=== PATIENT | female | born 1940 | race Asian ===

== ENCOUNTER 2020-03-09 07:05 | Day surgery (SDC) | payer OTHER, SELFPAY ==
[~2020-03-09] VITALS: Ht 157.5 cm; Wt 66.2 kg
[2020-03-09] MEDS ORDERED: fentaNYL citrate 0.05 MG/ML VIAL ONE (09:11)
[2020-03-09] MEDS ORDERED: diphenhydrAMINE 50 MG/ML VIAL ONE (09:11)
[2020-03-09] MEDS ORDERED: LIDOCAINE 2% 100 MG/5 ML UJET TP ONE (09:11)
[2020-03-09] MEDS ORDERED: MIDAZOLAM 5 MG/5 ML VIAL ONE (09:11)
[2020-03-09] MEDS ORDERED: MIDAZOLAM 2 MG/2 ML VIAL IVP ONE (13:40)
[2020-03-09] MEDS ORDERED: fentaNYL citrate 0.05 MG/ML VIAL IVP ONE (13:40)
== END 2020-03-09 10:45 | disposition home or self-care (01) ==
LOC: MDS 07:05 → MMU 07:06 → MDS 10:45
PROVIDERS: ATTEND Internal Medicine Gastroenterology
DX: R63.4 Abnormal weight loss (principal); K63.5 Polyp of colon; K20.90 Esophagitis, unspecified without bleeding; R11.2 Nausea with vomiting, unspecified; E11.9 Type 2 diabetes mellitus without complications; I10 Essential (primary) hypertension; K31.89 Other diseases of stomach and duodenum; Z79.899 Other long term (current) drug therapy; Z79.84 Long term (current) use of oral hypoglycemic drugs; Z79.82 Long term (current) use of aspirin; Z20.828 Contact with and (suspected) exposure to other viral communicable diseases
CPT/HCPCS: 43239; 45385; 88305; 88312; 88313; J2250; J3010; U0003; J1200